=== PATIENT | male | born 1975 | race Caucasian/White ===

== ENCOUNTER → 2016-04-17 | Day surgery (SDC) | payer BC ==
[~2016-04-17] VITALS: Ht 180.3 cm; Wt 85.8 kg
[~2016-04-17] MED LIST: *morphine SULFATE 8 MG/ML PERIprocedure ONLY ONE; ACETAMINOPHEN/HYDROcodone 325 MG/7.5 MG TAB PO PRN; BACT800T5 PO; BUPIVACAINE HCL PF 0.5% 30 ML VIAL ONE; BUPIVACAINE/EPINEPHRINE 0.5% 50 ML VIAL ONE; INSULIN HUMAN REGULAR 1,000 UNITS/10 ML VIAL SQ PRN; KETOROLAC TROMETHAMINE 30 MG/ML (IVP) VIAL IVP ONE; LACTATED RINGER'S 1000 ML IV SCH; METOPROLOL TARTRATE 25 MG TAB PO PRN; MIDAZOLAM HCL 2 MG/2 ML VIAL ONE; MORPHINE SULFATE 4 MG/ML INJ IV PUSH PRN; ONDANSETRON HCL 4 MG/2 ML VIAL IV PRN; ONDANSETRON HCL 4 MG/2 ML VIAL IV PUSH ONE; PROPOFOL 200 MG/20 ML AMP IV ONE; ROPIVACAINE 0.5% PF INJ 30 ML VIAL NB ONE; SODIUM CHLORID 0.9% 500 ML IV SCH; SODIUM CHLORIDE 0.9% FLUSH 5 ML FLUSH IVF PRN; SODIUM CHLORIDE 0.9% FLUSH 5 ML FLUSH IVF SCH; ceFAZolin 1,000 MG/NS 100 ML IV SCH; ceFAZolin INJ 1,000 MG VIAL IV ONE; ceFAZolin INJ 1,000 MG VIAL ONE
[2016-04-17 06:33] VITALS: BP 103/56; PULSE 52; RESP 18; TEMP 98.1; O2SAT 97
[2016-04-17 06:47] LABS: AUTOMATED NEUTROPHIL # 4.1 TH/MM3 (1.8-7.7); BASOPHIL % 0.3 % (0.0-2.0); EOSINOPHIL # 0.2 TH/MM3 (0-0.4); EOSINOPHIL % 2.6 % (0.0-4.0); HEMATOCRIT 42.2 % (39.0-51.0); HEMO FLAGS DIFF FINAL; LYMPH % 31.4 % (9.0-44.0); LYMPHOCYTE # 2.3 TH/MM3 (1.0-4.8); MEAN CELL VOLUME 87.4 FL (80.0-100.0); MEAN CORPUSCULAR HEMOGLOBIN 30.7 PG (27.0-34.0); MEAN CORPUSCULAR HGB CONC 35.1 % (32.0-36.0); MONO % 9.1 % (0.0-8.0); NEUT % 56.6 % (16.0-70.0); PLATELET COUNT 213 TH/MM3 (150-450); RED BLOOD COUNT 4.83 MIL/MM3 (4.50-5.90); RED CELL DISTRIBUTION WIDTH 13.3 % (11.6-17.2); WHITE BLOOD COUNT 7.2 TH/MM3 (4.0-11.0)
[2016-04-17 10:55] VITALS: BP 128/80; PULSE 65; RESP 18; TEMP 97.2; O2SAT 97
--- NOTE | 2016-04-20 07:04 | MP ---
cc: Deya HILL. DATE OF SURGERY: 04/17/2016 PREOPERATIVE DIAGNOSIS: Acute rupture left distal biceps tendon. POSTOPERATIVE DIAGNOSIS: Acute rupture left distal biceps tendon. OPERATION PERFORMED Repair left distal biceps using Arthrex tension - slide technique. SURGEON Ching Hill MD ANESTHESIA General endotracheal, with supplemental interscalene block. ENVIRONMENTAL DEPARTMENT MANAGER: Sirena DOS SANTOS INDICATIONS AND FINDINGS This 40-year-old man sustained an injury to his right elbow and ruptured his distal biceps tendon. Physical findings showed deformity consistent with the above injury. An MRI also showed findings consistent with the rupture. OPERATIVE FINDINGS: Operative findings showed a complete disruption of the insertion of the distal biceps which was avulsed from the radius. PROCEDURE The patient was brought to the operating room and a general anesthetic was administered. He had to have an interscalene block carried out preoperatively. He was then placed in supine position on the operating table with a pneumatic tourniquet about the left upper arm. The arm was then prepped with alcohol, Hibiclens, and ChloraPrep and draped in the usual manner with the arm draped free. An appropriate time-out procedure was carried out. The crease of the antecubital space was marked 4 cm distal to this, the incision site was marked. The biceps tendon was identified more proximally and marked as well. A transverse incision was then made 4 cm distal to the antecubital crease. The incision was deepened through the subcutaneous tissues to the muscular layers which were bluntly dissected down to the area of the radial tubercle. After this was done, following the seroma was attempted, but I was unable to access the original sheath from the rupture from below. A transverse incision approximately 2 cm in length was then made directly over the tip of the biceps tendon. It was palpable subcutaneously. When this was opened the tendon was then delivered out. This was then debrided and trimmed. A whip-stitched with FiberWire from the kit was carried out being certain to lock proximal and distal ends. Following this, a clamp was then brought from above, following the seroma and the tract down to the forearm. This suture was grasped and used as traction suture to bring this down into position. The button was applied. Exposure of the radial tubercle was carried out bluntly and subperiosteal dissection was carried out at this site. A 3.2 mm guide pin was then drilled approximately 15 degrees ulnar-mondragon through the center of this tubercle. The over-reaming was carried out with the 8 millimeter reamer. This was the size that was measured on the tendon. The tension slide button was then delivered through the 3.2 millimeter fenestration. The wound was copiously irrigated with lactated Ringer's solution before bringing the tendon into position. The biceps tendon was then advanced down into the socket made by the reamer in the radius. A suture was then passed through this to stabilize the docking of the tendon. A bioabsorbable screw was then passed into the site and seated appropriately. This gave a good firm fixation. The suture was then over-tied again with multiple throws. The suture was transected. The subcutaneous tissues and fascial structures were closed with 2-0 Vicryl interrupted simple sutures with buried knots. The skin was closed with continuous subcuticular closure of 4-0 Monocryl. The wounds were dressed with Steri-Strips followed by dry dressing, sterile Sof-Rol and Jakob bandage. He was placed into a sling and transferred to the recovery room in satisfactory condition having tolerated the procedure well. Counts were correct. Specimens none. Estimated blood loss 10 mL. MD VALENTINA Cordova/MINNIE /9:48 AM /5:47 AM
== END | disposition home or self-care (01) ==
LOC: HSDC 05:49
PROVIDERS: ATTEND Orthopaedic Surgery
DX: S46.212A Strain of muscle, fascia and tendon of other parts of biceps, left arm, initial encounter (principal); W18.11XA Fall from or off toilet without subsequent striking against object, initial encounter; Z01.812 Encounter for preprocedural laboratory examination
CPT/HCPCS: 01710; 24342; 64415; 85025; J0690; J2250; J2270; J2405; J2795; J3010; J7120

== ENCOUNTER 2017-01-19 11:00 | Inpatient (IN) | payer BC ==
[~2017-01-19] VITALS: Ht 180.3 cm; Wt 90.5 kg
[2017-01-19] MEDS ORDERED: SODIUM CHLORIDE 0.9% FLUSH 10 ML FLUSH IV FLUSH PRN ×2 (11:15→14:45)
[2017-01-19] MEDS ORDERED: ONDANSETRON HCL 4 MG/2 ML VIAL IVP ONE (11:15)
[2017-01-19] MEDS ORDERED: KETOROLAC TROMETHAMINE 30 MG/ML (IVP) VIAL IVP ONE (11:15)
[2017-01-19] MEDS ORDERED: SODIUM CHLOR 0.9% 1000 ML INJ 1,000 ML IV SCH ×2 (11:27→16:30)
--- NOTE | 2017-01-19 11:27 | PD ---
HPI Chief Complaint: Flank/Kidney Pain Time Seen by Provider: 11:11 Travel History International Travel<30 days: No Contact w/Intl Traveler<30days: No History of Present Illness HPI 41 year old male here with left flank pain 3 days. Decreased urine output today. Patient has history of kidney stones. He reports this pain is similar to previous stones. Followed by urologist Dr. Lynne who saw the patient this morning and sent him into the ER. He denies fever, chills, abdominal pain , nausea or vomiting. Severity is moderate. No alleviating factors. PFSH Past Medical History Narrative Medical Significant for renal calculi Cancer: No Cardiovascular Problems: No Diabetes: No Endocrine: No Genitourinary: No Hepatitis: No Hiatal Hernia: No Immune Disorder: No Musculoskeletal: No Neurologic: No Psychiatric: No Reproductive: No Respiratory: No Thyroid Disease: No Past Surgical History Abdominal Surgery: No AICD: No Cardiac Surgery: No Ear Surgery: No Endocrine Surgery: No Eye Surgery: No Genitourinary Surgery: Yes (KINDEY STONE EXTRACTION X 2) Gynecologic Surgery: No Joint Replacement: No Oral Surgery: No Pacemaker: No Thoracic Surgery: No Social History Alcohol Use: No Tobacco Use: No Substance Use: No Allergies-Medications (Allergen,Severity, Reaction): Coded Allergies: No Known Allergies (Unverified , 04/17/16) Reported Meds & Prescriptions Reported Meds & Active Scripts Active Reported Goody's Ex-Str Powder Packet (Aspirin/Acetaminophen/Caffeine) 500 Mg-325 Mg-65 Mg Powd.pack Review of Systems Except as stated in HPI: all other systems reviewed are Neg General / Constitutional: No: Fever Genitourinary: Positive: Decreased Urinary Output Physical Exam Narrative GENERAL: Alert male in moderate distress SKIN: Warm and dry. HEAD: Normocephalic. EYES: No scleral icterus. No injection or drainage. NECK: Supple, trachea midline. No JVD or lymphadenopathy. CARDIOVASCULAR: Regular rate and rhythm without murmurs, gallops, or rubs. RESPIRATORY: Breath sounds equal bilaterally. No accessory muscle use. GASTROINTESTINAL: Abdomen soft, non-tender, nondistended. MUSCULOSKELETAL: No cyanosis, or edema. BACK: Nontender without obvious deformity. + Left CVA tenderness. Data Data Last Documented VS Vital Signs Date Time Temp Pulse Resp B/P (MAP) Pulse Ox O2 Delivery O2 Flow Rate FiO2 12/11/17 14:33 60 146/77 (100) 97 Orders Orders Basic Metabolic Panel (Bmp) (01/19/17 11:08) Complete Blood Count With Diff (01/19/17 11:08) Urinalysis - C+S If Indicated (01/19/17 11:08) Ct Abd/Pel W/O Iv Contrast (01/19/17 11:08) Iv Access Insert/Monitor (01/19/17 11:08) Ondansetron Inj (Zofran Inj) (01/19/17 11:15) Sodium Chloride 0.9% Flush (Ns Flush) (01/19/17 11:15) Ketorolac Inj (Toradol Inj) (01/19/17 11:15) Sodium Chlor 0.9% 1000 Ml Inj (Ns 1000 M (01/19/17 11:27) Hydromorphone Pf Inj (Dilaudid Pf Inj) (01/19/17 11:45) Npo After Midnight W/ Po Meds (01/19/17 Dinner) Vital Signs (Adult) JANICE.Q4H (01/19/17 14:43) Sodium Chloride 0.9% Flush (Ns Flush) (01/19/17 14:45) Sodium Chloride 0.9% Flush (Ns Flush) (01/19/17 21:00) Admit To Inpatient (01/19/17 ) Inpatient Certification (01/19/17 ) Admit Order (Ed Use Only) (01/19/17 14:48) Labs Laboratory Tests Test 01/19/17 11:25 01/19/17 12:35 White Blood Count 12.8 TH/MM3 Red Blood Count 5.19 MIL/MM3 Hemoglobin 15.4 GM/DL Hematocrit 46.1 % Mean Corpuscular Volume 88.9 FL Mean Corpuscular Hemoglobin 29.8 PG Mean Corpuscular Hemoglobin Concent 33.5 % Red Cell Distribution Width 12.7 % Platelet Count 263 TH/MM3 Mean Platelet Volume 8.9 FL Neutrophils (%) (Auto) 78.0 % Lymphocytes (%) (Auto) 12.9 % Monocytes (%) (Auto) 7.8 % Eosinophils (%) (Auto) 0.4 % Basophils (%) (Auto) 0.9 % Neutrophils # (Auto) 10.0 TH/MM3 Lymphocytes # (Auto) 1.6 TH/MM3 Monocytes # (Auto) 1.0 TH/MM3 Eosinophils # (Auto) 0.1 TH/MM3 Basophils # (Auto) 0.1 TH/MM3 CBC Comment DIFF FINAL Differential Comment Blood Urea Nitrogen 12 MG/DL Creatinine 1.20 MG/DL Random Glucose 97 MG/DL Calcium Level 8.5 MG/DL Sodium Level 136 MEQ/L Potassium Level 3.8 MEQ/L Chloride Level 102 MEQ/L Carbon Dioxide Level 26.6 MEQ/L Anion Gap 7 MEQ/L Estimat Glomerular Filtration Rate 67 ML/MIN Urine Collection Type VOIDED Urine Color YELLOW Urine Turbidity CLEAR Urine pH 6.0 Urine Specific [place] 1.027 Urine Protein 30 mg/dL Urine Glucose (UA) NEG mg/dL Urine Ketones NEG mg/dL Urine Occult Blood LARGE Urine Nitrite NEG Urine Bilirubin NEG Urine Leukocyte Esterase SMALL Urine RBC INNUM /hpf Urine WBC 6-8 /hpf Urine Squamous Epithelial Cells 0-3 /hpf Urine Calcium Oxalate Crystals RARE /hpf Urine Mucus MOD /lpf Microscopic Urinalysis Comment CULT NOT INDICATED MDM Medical Decision Making Medical Screen Exam Complete: Yes Emergency Medical Condition: Yes Interpretation(s) CT the abdomen pelvis: CONCLUSION: 1. Acute obstructive uropathy of the left distal ureter secondary to 2 calcified 6 mm distal ureteral calculi several centimeters proximal to the UVJ resulting in moderate ureteropelvocaliectasis on the left. 2. Multiple calcified nonobstructing bilateral renal calculi. 3. Uncomplicated colonic diverticulosis. 4. Degenerative changes and scoliosis of the lumbar spine. Differential Diagnosis Nephrolithiasis, objective uropathy, pyelonephritis Narrative Course 41-year-old male here with left flank pain 3 days. Decreased urine output today. Patient has history kidney stones. CT Show acute obstructive uropathy of the left distal ureter proximal to the UVJ causing moderate ureteropelvocaliectasis caused by 2 6 mm stones. UA was positive for RBCs negative for white blood cells. 1300 spoke with who believes that the patient needs ureter stent. He is unable to schedule this for the patient in the next couple of days and believes the patient should be seen prior by our on-call urologist. Call placed to on-call urologist [id number] Anaya on-call urologist who agrees the patient will likely need ureter stent. He would like the patient admitted to medicine and made NPO after midnight in preparation for surgical intervention tomorrow. SPOKE WITH DR. OKEEFE who agrees to admit patient to their service. Diagnosis Primary Impression: Renal calculi Additional Impression: Obstructive uropathy Admitting Information Admitting Physician Requests: Admit Jennifer Cardenas Jan 19, 2017 11:27
[2017-01-19] MEDS ORDERED: ASPI1POW9 (11:29)
[2017-01-19 11:41] LABS: BASOPHIL # 0.1 TH/MM3 (0-0.2); BASOPHIL % 0.9 % (0.0-2.0); EOSINOPHIL # 0.1 TH/MM3 (0-0.4); EOSINOPHIL % 0.4 % (0.0-4.0); HEMATOCRIT 46.1 % (39.0-51.0); HEMO FLAGS DIFF FINAL; LYMPH % 12.9 % (9.0-44.0); LYMPHOCYTE # 1.6 TH/MM3 (1.0-4.8); MEAN CELL VOLUME 88.9 FL (80.0-100.0); MEAN CORPUSCULAR HEMOGLOBIN 29.8 PG (27.0-34.0); MEAN CORPUSCULAR HGB CONC 33.5 % (32.0-36.0); MONO % 7.8 % (0.0-8.0); PLATELET COUNT 263 TH/MM3 (150-450); RED BLOOD COUNT 5.19 MIL/MM3 (4.50-5.90); RED CELL DISTRIBUTION WIDTH 12.7 % (11.6-17.2); WHITE BLOOD COUNT 12.8 TH/MM3 (4.0-11.0)
[2017-01-19] MEDS ORDERED: HYDROmorphone HCL PF 2 MG/ML VIAL IV PUSH ONE (11:45)
[2017-01-19 11:54] LABS: POTASSIUM 3.8 MEQ/L (3.5-5.1)
[2017-01-19 11:57] LABS: BICARBONATE 26.6 MEQ/L (21.0-32.0)
--- NOTE | 2017-01-19 12:35 | RADRPT ---
EXAM DATE/TIME: 01/19/2017 12:00 [facility] COMPARISON: No previous studies available for comparison. INDICATIONS : Left flank pain. Evaluate for calculi. ORAL CONTRAST: No oral contrast ingested. RADIATION DOSE: 16.79 CTDIvol (mGy) MEDICAL HISTORY : Renal calculi. SURGICAL HISTORY : None. ENCOUNTER: Initial ACUITY: 2 days PAIN SCALE: 2/10 LOCATION: Left flank TECHNIQUE: Volumetric scanning of the abdomen and pelvis was performed. Using automated exposure control and ad justment of the mA and/or kV according to patient size, radiation dose was kept as low as reasonably achievable to obtain optimal diagnostic quality images. DICOM format image data is available electro nically for review and comparison. FINDINGS: LOWER LUNGS: The visualized lower lungs are clear. LIVER: Homogeneous density without lesion. There is no dilation of the biliary tree. No calcified gallston es. SPLEEN: Normal size without lesion. PANCREAS: Within normal limits. KIDNEYS: There is evidence of acute obstructive uropathy on the left secondary to 2 calcified left distal uret eral calculi measuring 6 mm each which are several centimeters proximal to the ureterovesical junctio n. Moderate ureteropelvocaliectasis is noted on the left. Multiple calcified nonobstructing bilateral renal calculi are also noted. The largest nonobstructing calculus is noted on the right and measures 3 mm. ADRENAL GLANDS: Within normal limits. VASCULAR: There is no aortic aneurysm. BOWEL/MESENTERY: Uncomplicated colonic diverticulosis is noted. No acute diverticulitis is noted. ABDOMINAL WALL: Within normal limits. RETROPERITONEUM: There is no lymphadenopathy. BLADDER: No wall thickening or mass. REPRODUCTIVE: Within normal limits. INGUINAL: There is no lymphadenopathy or hernia. MUSCULOSKELETAL: Mild degenerative changes and scoliosis of the lumbar spine are noted. Vacuum disc phenomenon is note d at L5-S1 and L4-5. CONCLUSION: 1. Acute obstructive uropathy of the left distal ureter secondary to 2 calcified 6 mm distal ureteral calculi several centimeters proximal to the UVJ resulting in moderate ureteropelvocaliectasis on the left. 2. Multiple calcified nonobstructing bilateral renal calculi. 3. Uncomplicated colonic diverticulosis. 4. Degenerative changes and scoliosis of the lumbar spine. Giancarlo Ngo MD on January 19, 2017 at 12:27 Board Certified Radiologist. This report was verified electronically.
[2017-01-19 12:41] VITALS: BP 133/67; PULSE 65; O2SAT 97
[2017-01-19 12:43] LABS: BLOOD, URINE LARGE (NEG); GLUCOSE,URINE NEG (NEG); KETONE, URINE NEG (NEG); NITRITE,URINE NEG (NEG)
[2017-01-19 13:01] LABS: METHOD OF COLLECTION VOIDED; URINE COLOR YELLOW (YELLW/STRAW)
[2017-01-19 13:03] LABS: RBC, URINE INNUM /hpf (0-3)
[2017-01-19 13:04] LABS: MUCUS URINE MOD /lpf (OCC); SQUAMOUS EPITHELIAL CELL URINE 0-3 /hpf (0-5)
[2017-01-19 13:05] LABS: CALCIUM OXALATE CRYSTALS,URINE RARE /hpf; COMMENT (UR) CULT NOT INDICATED; CULTURE IF INDICATED CULT NOT INDICATED
[2017-01-19 14:33] VITALS: BP 146/77; PULSE 60; O2SAT 97
[2017-01-19 16:00] VITALS: BP 120/56; PULSE 84; RESP 18; TEMP 97.5; O2SAT 96
--- NOTE | 2017-01-19 16:28 | HHI.HP ---
[facility] Good Carrasquillo MD Admission Diagnosis OBSTRUCTIVE UROPATHY, LEFT RENAL STONE Diagnoses: Chief Complaint: left flank pain Travel History International Travel<30 Days: No Contact w/Intl Traveler <30 Da: No Traveled to Known Affected Are: No History of Present Illness 41-year-old white male being admitted for obstructive uropathy. Patient was in his usual state of health until sometime yesterday when he began experiencing left flank pain. He says the pain would fluctuate up and down, at worst intensity would go to it "10+." He took some Goody powders for which provided no avail. He did have some nausea but no vomiting. Denies any fevers or chills. He does report having some hematuria. His pain was somewhat better last night, was able go to sleep. This morning when he was getting ready to go to work he began expanding the pain again and went to the emergency room at [facility] first but said the wait was too long and then went to his primary care physician's office. He was given scripts for medications but never got to the pharmacy in time to fill them due to worsening of his pain decided to come to the emergency room here. Patient does also report having some difficulty urinating, feels like he is getting obstructed just for urethral output. Says he has a urologist. Past Family Social History Past Medical History spinal meningitis as a child nephrolithiasis Past Surgical History Multiple ureteral stents for stones Allergies: Coded Allergies: No Known Allergies (Unverified , 04/17/16) Family History no fam hx of kidney stones Social History Active smoker, drinks 1 or 2 each week. Denies any illicit drug use now or in the past Physical Exam Vital Signs Vital Signs Date Time Temp Pulse Resp B/P (MAP) Pulse Ox O2 Delivery O2 Flow Rate FiO2 01/19/17 16:21 01/19/17 14:33 60 146/77 (100) 97 01/19/17 12:41 65 133/67 (89) 97 Physical Exam VS: Afebrile GENERAL: Middle-aged white male, lying awake in bed, no acute distress SKIN: Warm and dry. EYES: No scleral icterus. No injection or drainage. ENT: No nasal bleeding or discharge. Mucous membranes pink and moist. CARDIOVASCULAR: Regular rate and rhythm. no murmurs RESPIRATORY: No accessory muscle use. Clear to auscultation. Breath sounds equal bilaterally. GASTROINTESTINAL: Abdomen soft, non-tender, nondistended. Has reproducible mild to moderate CVA tenderness to percussion on the left side, none on the right Extremities: No clubbing, cyanosis, or edema. No obvious deformities. MUSCULOSKELETAL: No obvious deformities. grossly intact ROM with 5/5 strength in upper and lower extremities proximally NEUROLOGICAL: Awake and alert. No obvious cranial nerve deficits. No facial droop nor slurred speech noted. PSYCHIATRIC: Appropriate mood and affect; insight and judgment normal. Laboratory Laboratory Tests Test 01/19/17 11:25 01/19/17 12:35 White Blood Count 12.8 Red Blood Count 5.19 Hemoglobin 15.4 Hematocrit 46.1 Mean Corpuscular Volume 88.9 Mean Corpuscular Hemoglobin 29.8 Mean Corpuscular Hemoglobin Concent 33.5 Red Cell Distribution Width 12.7 Platelet Count 263 Mean Platelet Volume 8.9 Neutrophils (%) (Auto) 78.0 Lymphocytes (%) (Auto) 12.9 Monocytes (%) (Auto) 7.8 Eosinophils (%) (Auto) 0.4 Basophils (%) (Auto) 0.9 Neutrophils # (Auto) 10.0 Lymphocytes # (Auto) 1.6 Monocytes # (Auto) 1.0 Eosinophils # (Auto) 0.1 Basophils # (Auto) 0.1 CBC Comment DIFF FINAL Differential Comment Blood Urea Nitrogen 12 Creatinine 1.20 Random Glucose 97 Calcium Level 8.5 Sodium Level 136 Potassium Level 3.8 Chloride Level 102 Carbon Dioxide Level 26.6 Anion Gap 7 Estimat Glomerular Filtration Rate 67 Urine Collection Type VOIDED Urine Color YELLOW Urine Turbidity CLEAR Urine pH 6.0 Urine Specific [place] 1.027 Urine Protein 30 Urine Glucose (UA) NEG Urine Ketones NEG Urine Occult Blood LARGE Urine Nitrite NEG Urine Bilirubin NEG Urine Leukocyte Esterase SMALL Urine RBC INNUM Urine WBC 6-8 Urine Squamous Epithelial Cells 0-3 Urine Calcium Oxalate Crystals RARE Urine Mucus MOD Microscopic Urinalysis Comment CULT NOT INDICATED Result Diagram: 01/19/17 1125 01/19/17 1125 Imaging Last Impressions Abdomen/Pelvis CT 01/19/17 1108 Signed Impressions: Service Date/Time: Thursday, January 19, 2017 12:00 - CONCLUSION: 1. Acute obstructive uropathy of the left distal ureter secondary to 2 calcified 6 mm distal ureteral calculi several centimeters proximal to the UVJ resulting in moderate ureteropelvocaliectasis on the left. 2. Multiple calcified nonobstructing bilateral renal calculi. 3. Uncomplicated colonic diverticulosis. 4. Degenerative changes and scoliosis of the lumbar spine. MD Bakari Noriega VTE Risk Assessment Caprini VTE Risk Assessment: No/Low Risk (score <= 1) Caprini Risk Assessment Model Point Value = 1 Point Value = 2 Point Value = 3 Point Value = 5 Age 41-60 Minor surgery BMI > 25 kg/m2 Swollen legs Varicose veins or History of unexplained or recurrent spontaneous Oral contraceptives or hormone replacement Sepsis (< 1 month) Serious lung disease, including pneumonia (< 1 month) Abnormal pulmonary function Acute myocardial infarction Congestive heart failure (< 1 month) History of inflammatory bowel disease Medical patient at bed rest Age 61-74 Arthroscopic surgery Major open surgery (> 45 min) Laparoscopic surgery (> 45 min) Malignancy Confined to bed (> 72 hours) Immobilizing plaster cast Central venous access Age >= 75 History of VTE Family history of VTE Factor V Leiden Prothrombin [id number] Lupus anticoagulant Anticardiolipin antibodies Elevated serum homocysteine Heparin-induced thrombocytopenia Other congenital or acquired thrombophilia Stroke (< 1 month) Elective arthroplasty Hip, pelvis, or leg fracture Acute spinal cord injury (< 1 month) Prophylaxis Regimen Total Risk Factor Score Risk Level Prophylaxis Regimen 0-1 Low Early ambulation 2 Moderate Order ONE of the following: *Sequential Compression Device (SCD) *Heparin 5000 units SQ BID 3-4 Higher Order ONE of the following medications: *Heparin 5000 units SQ TID *Enoxaparin/Lovenox 40 mg SQ daily (WT < 150 kg, CrCl > 30 mL/min) *Enoxaparin/Lovenox 30 mg SQ daily (WT < 150 kg, CrCl > 10-29 mL/min) *Enoxaparin/Lovenox 30 mg SQ BID (WT < 150 kg, CrCl > 30 mL/min) AND/OR *Sequential Compression Device (SCD) 5 or more Highest Order ONE of the following medications: *Heparin 5000 units SQ TID (Preferred with Epidurals) *Enoxaparin/Lovenox 40 mg SQ daily (WT < 150 kg, CrCl > 30 mL/min) *Enoxaparin/Lovenox 30 mg SQ daily (WT < 150 kg, CrCl > 10-29 mL/min) *Enoxaparin/Lovenox 30 mg SQ BID (WT < 150 kg, CrCl > 30 mL/min) AND *Sequential Compression Device (SCD) Assessment and Plan Assessment and Plan 41-year-old white male being admitted for obstructive uropathy secondary to nephrolithiasis Obstructive uropathy and mild urinary difficulty - Left-sided 2 obstructing ureteral stones measuring 6 mm, urology being consulted, possible stent procedure in a.m. per discussion with ER practitioner - Will require by mouth and IV pain medication, monitor respiratory status - Gentle hydration with Flomax - Nothing by mouth after midnight except by mouth meds DVT prevention scds Physician Certification 2 Midnight Certification Type: Admission for Inpatient Services Order for Inpatient Services The services are ordered in accordance with Medicare regulations or non- Medicare payer requirements, as applicable. In the case of services not specified as inpatient-only, they are appropriately provided as inpatient services in accordance with the 2-midnight benchmark. Estimated LOS (days): 2 2 days is the estimated time the patient will need to remain in the hospital, assuming treatment plan goals are met and no additional complications. Post-Hospital Plan: Home Zeus Blackmon MD Jan 19, 2017 16:28
[2017-01-19] MEDS ORDERED: MORPHINE SULFATE 4 MG/ML INJ IV PUSH PRN (16:30)
[2017-01-19] MEDS ORDERED: ONDANSETRON HCL 4 MG/2 ML VIAL IV PUSH PRN (17:00)
[2017-01-19] MEDS: oxyCODONE/ACETAMINOPHEN 10 MG/325 MG TAB PO PRN ×2 (17:08→21:18)
[2017-01-19] MEDS: TAMSULOSIN HCL 0.4 MG CAP PO SCH (17:08)
[2017-01-19] MEDS: HYDROmorphone HCL PF 2 MG/ML VIAL IV PUSH PRN (19:04)
[2017-01-19 20:00] VITALS: BP 132/67; PULSE 62; RESP 20; TEMP 97.9; O2SAT 94
[2017-01-19] MEDS: SODIUM CHLORIDE 0.9% FLUSH 10 ML FLUSH IV FLUSH SCH (21:00)
[2017-01-20] VITALS: BP 123/99; PULSE 68; RESP 18; TEMP 97.8; O2SAT 95
[2017-01-20] MEDS: HYDROmorphone HCL PF 2 MG/ML VIAL IV PUSH PRN ×2 (01:23→14:21)
[2017-01-20] MEDS: oxyCODONE/ACETAMINOPHEN 10 MG/325 MG TAB PO PRN (07:27)
[2017-01-20] MEDS: TAMSULOSIN HCL 0.4 MG CAP PO SCH (07:29)
[2017-01-20] MEDS: SODIUM CHLORIDE 0.9% FLUSH 10 ML FLUSH IV FLUSH SCH (07:35)
[2017-01-20 08:00] VITALS: BP 116/61; PULSE 62; RESP 20; TEMP 96.7; O2SAT 95
[2017-01-20] MEDS ORDERED: SODIUM CHLORIDE 0.9% INJ 50 ML ONE (11:38)
[2017-01-20] MEDS ORDERED: ceFAZolin INJ 1,000 MG VIAL ONE (11:38)
[2017-01-20] MEDS ORDERED: LACTATED RINGER'S 1000 ML INJ 1,000 ML ONE (12:06)
[2017-01-20] MEDS ORDERED: IOHEXOL 350 MG/ML 50 ML BTL (for RAD DIAG) OTHER ONE (12:22)
--- NOTE | 2017-01-20 12:36 | PD.CONS ---
[facility] Service Urology Consult Requested By Dr. Blackmon Reason for Consult Obstructing left distal ureteral calculi Primary Care Physician Good Carrasquillo MD Diagnosis: History of Present Illness 41-year-old gentleman with history nephrolithiasis who presented to the emergency room with acute onset left flank pain that began 1 day prior to admission. Patient had contacted his established urologist who advised patient to come to the emergency room for further management. The patient actually presented initially to [facility] however he reports that he did have want to wait to be seen and left prematurely. His left flank pain continued to worsen and he presented to [facility]. CT scanning emergency room demonstrated left hydronephrosis secondary to left distal ureteral calculi. The largest measuring 6 mm. Patient also was noted to have bilateral renal calculi as well. Upon further questioning the patient reports that he has spontaneously passed multiple stones in the past. He denies gross hematuria or dysuria. Has been afebrile. Review of Systems Constitutional: DENIES: Fever, Night Sweats Cardiovascular: DENIES: Chest pain Gastrointestinal: COMPLAINS OF: Abdominal pain Genitourinary: DENIES: Hematuria, Dysuria Musculoskeletal: COMPLAINS OF: Back pain (left lower quadrant left flank) Except as stated in HPI: all other systems reviewed are Neg Past Family Social History Past Medical History Recurrent nephrolithiasis Spinal meningitis (childhood) Past Surgical History Status post prior stent placement for nephrolithiasis Reported Medications Refer to EMR Allergies: Coded Allergies: No Known Allergies (Unverified , 04/17/16) Active Ordered Medications Refer to EMR Family History Reviewed and noncontributory Social History Current day smoker Occasional alcohol use Denies history of illicit drug abuse Physical Exam Vital Signs Date Time Temp Pulse Resp B/P (MAP) Pulse Ox O2 Delivery O2 Flow Rate FiO2 01/20/17 11:25 97.7 66 16 120/75 (90) 97 01/20/17 08:00 96.7 62 20 116/61 (79) 95 01/20/17 00:00 97.8 68 18 123/99 (107) 95 01/19/17 20:00 97.9 62 20 132/67 (88) 94 01/19/17 16:21 01/19/17 16:00 97.5 84 18 120/56 (77) 96 01/19/17 14:33 60 146/77 (100) 97 01/19/17 12:41 65 133/67 (89) 97 Physical Exam GENERAL: This is a well-nourished, well-developed patient, in no apparent distress. SKIN: No rashes, ecchymoses or lesions. Cool and dry. HEAD: Atraumatic. Normocephalic. No temporal or scalp tenderness. EYES: Pupils equal round and reactive. Extraocular motions intact. No scleral icterus. No injection or drainage. ENT: Nose without bleeding, purulent drainage or septal hematoma. Throat without erythema, tonsillar hypertrophy or exudate. Uvula midline. Airway patent. NECK: Trachea midline. No JVD or lymphadenopathy. Supple, nontender, no meningeal signs. CARDIOVASCULAR: Regular rate and rhythm without murmurs, gallops, or rubs. RESPIRATORY: Clear to auscultation. Breath sounds equal bilaterally. No wheezes , rales, or rhonchi. GASTROINTESTINAL: Abdomen soft, non-tender, nondistended. No hepato-splenomegaly , or palpable masses. No guarding. GENITOURINARY: MUSCULOSKELETAL: Extremities without clubbing, cyanosis, or edema. No joint tenderness, effusion, or edema noted. No calf tenderness. Negative Homans sign bilaterally. NEUROLOGICAL: Awake and alert. Cranial nerves II through XII intact. Motor and sensory grossly within normal limits. Five out of 5 muscle strength in all muscle groups. Normal speech. Lab results reviewed: Yes Result Diagram: 01/19/17 1125 01/19/17 1125 Personally reviewed images: Yes Imaging Last Impressions Abdomen/Pelvis CT 01/19/17 1108 Signed Impressions: Service Date/Time: Thursday, January 19, 2017 12:00 - CONCLUSION: 1. Acute obstructive uropathy of the left distal ureter secondary to 2 calcified 6 mm distal ureteral calculi several centimeters proximal to the UVJ resulting in moderate ureteropelvocaliectasis on the left. 2. Multiple calcified nonobstructing bilateral renal calculi. 3. Uncomplicated colonic diverticulosis. 4. Degenerative changes and scoliosis of the lumbar spine. Giancarlo Ngo MD Assessment and Plan Assessment and Plan Urologic impression: #1 obstructing left distal ureteral calculi #2 left hydronephrosis related to obstructing calculi #3 bilateral renal calculi Plan: #1 keep patient nothing by mouth #2 proceed with cystoscopy, left retrograde pyelogram and left ureteral stent placement today #3 recent benefits discussed with patient Sam Anaya MD Jan 20, 2017 12:36
--- NOTE | 2017-01-20 12:37 | PD.OP ---
Operative Report Date of Surgery: Jan 20, 2017 Preoperative Diagnosis: (1) Ureteral calculus, left Postoperative Diagnosis: (1) Ureteral calculus, left Procedure: Cystoscopy, left retrograde pyelogram and left ureteral stent placement Anesthesia: General Surgeon: Sam Anaya Pipe Coverer Helper(s): None Operation and Findings: Indication for procedures: Case of a pleasant 41-year-old gentleman with 2 obstructing left distal ureteral calculi who presents now for cystoscopy, left retrograde pyelogram and left ureteral stent placement. Operative procedure in detail: Patient was brought to the operating suite and placed supine on the OR table. He was then placed under general anesthesia. He was then repositioned in the dorsolithotomy position and prepped and draped in normal sterile fashion. After appropriate timeout was undertaken high proceed with cystoscopic evaluation utilizing the rigid cystoscope with the 21 Filipino sheath and 30 lens. The urethra was patent without stricture formation in the prostatic urethra was nonobstructing. Further passage of the cystoscope within the urinary bladder revealed both right and left ureteral orifices to be in correct anatomic position. There was clear efflux of urine noted on the right and no efflux on the left. Utilizing a 6 Filipino over the lids ureteral catheter, I performed a left prescription pyelogram that demonstrated the obstructing left distal ureteral stones. I was then able to advance a sensor 0.035 wire up the left ureter around the stones and up into the left renal pelvis. Once the wire was in place, the open-ended catheter was exchanged for a Clemons 6 Filipino 26 cm double-J stent. The stent was passed under both cystoscopic and fluoroscopic guidance without any difficulty. Once the stent was in proper position, the trailing string was removed. The patient tolerated the procedures without complications and was transferred to the PACU in satisfactory condition. Sam Anaya MD Jan 20, 2017 12:37
[2017-01-20 12:50] VITALS: PULSE 65
[2017-01-20] MEDS ORDERED: *MEPERIDINE 25 MG INJ VIAL PERIprocedural Use ONLY ONE (13:08)
[2017-01-20] MEDS ORDERED: *Lactated Ringer's INJ 1,000 ML ONE (13:13)
[2017-01-20 14:00] VITALS: BP 155/78; PULSE 64; RESP 20; TEMP 96.9; O2SAT 99
--- NOTE | 2017-01-20 14:13 | HHI.PR ---
Subjective Remarks Nursing denies any deterioration since last night. Patient is currently postprocedure with ureteral stents placed. He says the Miramontes catheter is causing him intense burning and he really wants it out. Denies any nausea vomiting. Objective Vital Signs Date Time Temp Pulse Resp B/P (MAP) Pulse Ox O2 Delivery O2 Flow Rate FiO2 01/20/17 13:45 69 14 129/63 (85) 97 Room Air 01/20/17 13:30 97.1 64 14 140/69 (92) 97 Room Air 01/20/17 13:15 56 14 131/58 (82) 99 Nasal Cannula 2 01/20/17 13:00 64 14 117/59 (78) 99 Nasal Cannula 2 01/20/17 12:50 65 01/20/17 12:50 97.1 65 14 128/61 (83) 98 Nasal Cannula 2 01/20/17 11:25 97.7 66 16 120/75 (90) 97 01/20/17 08:00 96.7 62 20 116/61 (79) 95 01/20/17 00:00 97.8 68 18 123/99 (107) 95 01/19/17 20:00 97.9 62 20 132/67 (88) 94 01/19/17 16:21 01/19/17 16:00 97.5 84 18 120/56 (77) 96 01/19/17 14:33 60 146/77 (100) 97 I/O 01/19/17 01/19/17 01/19/17 01/20/17 01/20/17 01/20/17 07:00 15:00 23:00 07:00 15:00 23:00 Intake Total 1000 ml 76 ml 940 ml 2050 ml Output Total 250 ml Balance 1000 ml 76 ml 940 ml 1800 ml Intake Oral 480 ml 0 ml IV Total 1000 ml 76 ml 460 ml 2050 ml Output Urine Total 250 ml # Voids 4 # Bowel Movements 0 Result Diagram: 01/19/17 1125 01/19/17 1125 Objective Remarks Lying in bed, in mild distress secondary to pain Miramontes catheter in place, showing red urine currently, no clots in the catheter A/P Assessment and Plan Obstructing nephrolithiasis: Currently Status post - Cystoscopy, left retrograde pyelogram and left ureteral stent placement. Addendum: Patient had Miramontes catheter removed; was able to spontaneously void with one incident of hematuria with a clot. Eventually the patient's urine cleared up and his pain was essentially resolved. Patient has met maximal benefit from hospitalization and is clinically stable for discharge. He was counseled to follow up with his urologist tomorrow. Will be discharged on antibiotics and pain medication. Zeus Blackmon MD Jan 20, 2017 14:13
[2017-01-20] MEDS ORDERED: ceFAZolin 1,000 MG/NS 100 ML IV SCH ×2 (14:30)
[2017-01-20] MEDS ORDERED: CEPH-460 PO (14:37)
[2017-01-20] MEDS ORDERED: PERC7.5T13 PO (15:00)
--- NOTE | 2017-01-20 15:00 | HHI.DCPOC ---
Discharge Care Plan Goals to Promote Your Health * To prevent worsening of your condition and complications * To maintain your health at the optimal level Directions to Meet Your Goals Take your medications as prescribed Follow your dietary instruction Follow activity as directed Keep your appointments as scheduled Take your immunizations and boosters as scheduled If your symptoms worsen call your PCP, if no PCP go to Urgent Care Center or Emergency Room Smoking is Dangerous to Your Health. Avoid second hand smoke Call the 24-hour hour crisis hotline for domestic abuse at Zeus Blackmon MD Jan 20, 2017 15:00
--- NOTE | 2017-01-20 16:00 | RADRPT ---
EXAM DATE/TIME: 01/20/2017 13:29 [place] COMPARISON: No previous studies available for comparison. INDICATIONS : Left side stent placement. MEDICAL HISTORY : Smoker. SURGICAL HISTORY : None. ENCOUNTER: Subsequent ACUITY: 2 days PAIN SCORE: Non-responsive. LOCATION: Abdomen. FINDINGS: Examination of the abdomen demonstrates retrograde opacification of the left ureter. A filling defect is identified in the distal left ureter. A pigtail stent has been placed from the left renal pelvis to the bladder. CONCLUSION: Filling defect in the distal left ureter characteristic of ureterolithiasis. Placement of a left internal ureteral stent Kiko Hernandez MD on January 20, 2017 at 15:56 Board Certified Radiologist. This report was verified electronically.
== END 2017-01-20 18:07 | disposition home or self-care (01) | DRG 694 ==
LOC: PHEFT 11:00 → PHEDA 14:50 → PH3B 16:22
PROVIDERS: ADMIT Hospitalist; ATTEND Hospitalist
PROC: BT1F1ZZ Fluoroscopy of Left Kidney, Ureter and Bladder using Low Osmolar Contrast (ICD-10-PCS; 2017-01-20)
PROC: 0T778DZ Dilation of Left Ureter with Intraluminal Device, Via Natural or Artificial Opening Endoscopic (ICD-10-PCS; principal; 2017-01-20 11:50)
DX: N13.2 Hydronephrosis with renal and ureteral calculous obstruction (principal); F17.200 Nicotine dependence, unspecified, uncomplicated; Z86.61 Personal history of infections of the central nervous system; Z87.442 Personal history of urinary calculi
CPT/HCPCS: 74000; 74176; 76000; 80048; 81001; 85025; J0690; J1170; J1885; J2175; J2405; J7030; J7120; Q9967